=== PATIENT | male | born 1960 | race Native Hawaiian/Other Pacific Islander ===

== ENCOUNTER 2016-07-01 01:39 | Emergency (ER) | payer BC ==
[~2016-07-01] VITALS: Ht 172.7 cm; Wt 81.0 kg
[~2016-07-01 01:39] MED LIST: HYDR-3533 PO; PRAV10 PO
[2016-07-01 01:40] VITALS: BP 171/94; PULSE 69; RESP 16; TEMP 97.8; O2SAT 97
[2016-07-01] MEDS ORDERED: PRAV10TA PO (02:06)
[2016-07-01] MEDS ORDERED: MORPHINE SULFATE 4 MG/ML INJ IV PUSH ONE ×2 (02:15→03:45)
[2016-07-01] MEDS ORDERED: SODIUM CHLOR 0.9% 1000 ML INJ 1,000 ML IV ONE (02:15)
[2016-07-01] MEDS ORDERED: ONDANSETRON HCL 4 MG/2 ML VIAL IV ONE (02:15)
[2016-07-01 02:16] LABS: AUTOMATED NEUTROPHIL # 3.5 TH/MM3 (1.8-7.7); BASOPHIL % 0.6 % (0.0-2.0); EOSINOPHIL # 0.4 TH/MM3 (0-0.4); EOSINOPHIL % 5.1 % (0.0-4.0); HEMATOCRIT 42.7 % (39.0-51.0); HEMO FLAGS DIFF FINAL; LYMPH % 37.6 % (9.0-44.0); LYMPHOCYTE # 2.7 TH/MM3 (1.0-4.8); MEAN CELL VOLUME 85.4 FL (80.0-100.0); MEAN CORPUSCULAR HEMOGLOBIN 30.3 PG (27.0-34.0); MEAN CORPUSCULAR HGB CONC 35.5 % (32.0-36.0); MONO % 8.2 % (0.0-8.0); NEUT % 48.5 % (16.0-70.0); PLATELET COUNT 238 TH/MM3 (150-450); RED BLOOD COUNT 5.01 MIL/MM3 (4.50-5.90); RED CELL DISTRIBUTION WIDTH 12.9 % (11.6-17.2); WHITE BLOOD COUNT 7.2 TH/MM3 (4.0-11.0)
--- NOTE | 2016-07-01 02:35 | PD ---
HPI Chief Complaint: GI Complaint Time Seen by Provider: 01:52 Travel History International Travel<30 days: Yes Contact w/Intl Traveler<30days: Yes Name of Country Traveled to: [place] Traveled to known affect area: No History of Present Illness HPI The 56-year-old man who presents to the emergency department complaining of right upper quadrant abdominal pain. He had similar pain some time ago. Over the past week he's had intermittent pain, bad several days ago and then really bad again tonight. Pain tends to be worse at night. He's had associated nausea vomiting, and chills. No change in his bowel movements. No change in urination. Only previous abdominal history has been surgical history is been treatment of abdominal wall odonnell. He saw a GI doctor who put him test for him to get on his gallbladder next week. History Past Medical History Narrative Medical Hyperlipidemia Extensive odonnell in the past Tetanus Vaccination: < 5 Years Social History Alcohol Use: Yes (OCC) Tobacco Use: No Allergies-Medications (Allergen,Severity, Reaction): Coded Allergies: No Known Allergies (Unverified , 07/01/16) Reported Meds & Prescriptions Reported Meds & Active Scripts Active Reported Pravastatin 10 Mg Tab 10 Mg PO DAILY Review of Systems Except as stated in HPI: all other systems reviewed are Neg Physical Exam Narrative GENERAL: 56 year-old man, appears uncomfortable but nontoxic. SKIN: Warm and dry. Extensive scarring on the trunk and extremities from previous odonnell. HEAD: Atraumatic. Normocephalic. CARDIOVASCULAR: Regular rate and rhythm. No murmur appreciated. RESPIRATORY: No accessory muscle use. Clear to auscultation. Breath sounds equal bilaterally. GASTROINTESTINAL: Abdomen is flat and soft. Extensive skin scarring from previous odonnell. Focal tenderness in the right upper quadrant. Negative Nava' s. MUSCULOSKELETAL: No obvious deformities. No edema. NEUROLOGICAL: Awake and alert. No obvious cranial nerve deficits. Motor grossly within normal limits. Normal speech. PSYCHIATRIC: Appropriate mood and affect; insight and judgment normal. Data Data Last Documented VS Vital Signs Date Time Temp Pulse Resp B/P Pulse Ox O2 Delivery O2 Flow Rate FiO2 07/01/16 01:40 97.8 69 16 171/94 97 Room Air Orders Complete Blood Count With Diff (07/01/16 01:52) Comprehensive Metabolic Panel (07/01/16 01:52) Lipase (07/01/16 01:52) Iv Access Insert/Monitor (07/01/16 01:52) Sodium Chloride 0.9% Flush (Ns Flush) (07/01/16 02:00) Ed Poc Ultrasound (07/01/16 ) Morphine Inj (Morphine Inj) (07/01/16 02:15) Ondansetron Inj (Zofran Inj) (07/01/16 02:15) Sodium Chlor 0.9% 1000 Ml Inj (Ns 1000 M (07/01/16 02:15) Us Abdomen Gallbladder (07/01/16 ) Urinalysis - C+S If Indicated (07/01/16 02:31) Morphine Inj (Morphine Inj) (07/01/16 03:45) Ct Abd/Pel W Iv Contrast(Rout) (07/01/16 ) Iohexol 350 Inj (Omnipaque 350 Inj) (07/01/16 04:25) Labs Laboratory Tests Test 07/01/16 07/01/16 02:00 04:00 White Blood Count 7.2 TH/MM3 Red Blood Count 5.01 MIL/MM3 Hemoglobin 15.2 GM/DL Hematocrit 42.7 % Mean Corpuscular Volume 85.4 FL Mean Corpuscular Hemoglobin 30.3 PG Mean Corpuscular Hemoglobin 35.5 % Concent Red Cell Distribution Width 12.9 % Platelet Count 238 TH/MM3 Mean Platelet Volume 8.1 FL Neutrophils (%) (Auto) 48.5 % Lymphocytes (%) (Auto) 37.6 % Monocytes (%) (Auto) 8.2 % Eosinophils (%) (Auto) 5.1 % Basophils (%) (Auto) 0.6 % Neutrophils # (Auto) 3.5 TH/MM3 Lymphocytes # (Auto) 2.7 TH/MM3 Monocytes # (Auto) 0.6 TH/MM3 Eosinophils # (Auto) 0.4 TH/MM3 Basophils # (Auto) 0.0 TH/MM3 CBC Comment DIFF FINAL Differential Comment Sodium Level 141 MEQ/L Potassium Level 3.4 MEQ/L Chloride Level 106 MEQ/L Carbon Dioxide Level 28.4 MEQ/L Anion Gap 7 MEQ/L Blood Urea Nitrogen 13 MG/DL Creatinine 1.12 MG/DL Estimat Glomerular Filtration 68 ML/MIN Rate Random Glucose 119 MG/DL Calcium Level 9.6 MG/DL Total Bilirubin 0.9 MG/DL Aspartate Amino Transf 28 U/L (AST/SGOT) Alanine Aminotransferase 48 U/L (ALT/SGPT) Alkaline Phosphatase 98 U/L Total Protein 7.9 GM/DL Albumin 4.0 GM/DL Lipase 142 U/L Urine Color YELLOW Urine Turbidity CLEAR Urine pH 6.5 Urine Specific [place] 1.012 Urine Protein NEG mg/dL Urine Glucose (UA) 150 mg/dL Urine Ketones NEG mg/dL Urine Occult Blood NEG Urine Nitrite NEG Urine Bilirubin NEG Urine Urobilinogen LESS THAN 2.0 MG/DL Urine Leukocyte Esterase NEG Urine RBC LESS THAN 1 /hpf Urine WBC LESS THAN 1 /hpf Urine Hyaline Casts 1 /lpf Urine Mucus FEW /lpf Microscopic Urinalysis Comment CULT NOT INDICATED MDM Medical Decision Making Medical Screen Exam Complete: Yes Emergency Medical Condition: Yes Interpretation(s) LABS: CBC unremarkable. CMP unremarkable. Lipase normal. Coags unremarkable. Gallbladder ultrasound: Possible small for motor gallstone. No evidence of infection. Differential Diagnosis Gastritis, cholecystitis, pancreatitis, renal lithiasis, other Narrative Course Medical decision-making 56-year-old man who presents to the emergency department with severe right upper quadrant abdominal pain, suggestive of hepatobiliary disease. Bedside ultrasound doesn't show any obvious gallbladder pathology but was difficult to obtain proper images. We'll check labs, ultrasound, urine, reassess. FINAL: Workups unremarkable. Patient has significant epigastric discomfort. Most likely etiology of gastritis or peptic ulcer disease. We'll plan supportive treatment, antacids, follow-up with his GI physician. Procedures Procedure Narrative Point of care ultrasound: Focus transabdominal ultrasounds performed by me at the bedside to evaluate for cholecystitis. Very limited views. No obvious abnormality seen. Diagnosis Primary Impression: Gastritis Qualified Code: K29.00 - Acute gastritis without hemorrhage, unspecified gastritis type Additional Instructions: Take omeprazole as prescribed. Use Lortab if needed for pain. Follow-up with your GI doctor on Sunday as scheduled. Return to the emergency department for any new or worsening symptoms. Med/Other Pt SpecificInfo: Prescription(s) given Scripts Hydrocodone-Acetaminophen (Lortab)5-325 Mg Tab1-2 Tab PO Q6H PRN (PAIN) #12 TAB Prov:Olaf Cerda MD 07/01/16 Omeprazole 40 Mg Cap40 Mg PO DAILY #30 CAP Ref 0 Prov:Olaf Cerda MD 07/01/16 Disposition: 01 DISCHARGE HOME Condition: Stable Olaf Cerda MD Jul 01, 2016 02:35
[2016-07-01] MEDS: SODIUM CHLORIDE 0.9% FLUSH 5 ML FLUSH IVF PRN ×2 (02:42→03:44)
[2016-07-01 02:51] LABS: ANION GAP 7 MEQ/L (5-15); AST (GOT) 28 U/L (15-37); BICARBONATE 28.4 MEQ/L (21.0-32.0); BLOOD UREA NITROGEN 13 MG/DL (7-18); CHLORIDE 106 MEQ/L (98-107); GLOMERULAR FILTRATION RATE 68 ML/MIN (>89); POTASSIUM 3.4 MEQ/L (3.5-5.1); SODIUM (NA) 141 MEQ/L (136-145)
[2016-07-01 02:55] LABS: ALKALINE PHOSPHATASE 98 U/L (45-117); ALT (GPT) 48 U/L (12-78); TOTAL BILIRUBIN ADULT 0.9 MG/DL (0.2-1.0)
--- NOTE | 2016-07-01 03:31 | RADRPT ---
EXAM DATE/TIME: 07/01/2016 03:00 [facility] COMPARISON: No previous studies available for comparison. INDICATIONS : Right upper quadrant pain. MEDICAL HISTORY : Hyperlipidemia. Abdominal wall odonnell. SURGICAL HISTORY : Surgical treatment of abdominal wall odonnell. ENCOUNTER: Initial ACUITY: 1 week PAIN SCORE: 10/10 LOCATION: Right upper quadrant MEASUREMENTS: LIVER: 13.7 cm length COMMON DUCT: 6 mm RIGHT KIDNEY: 10.9 x 6.5 x 5.3 cm FINDINGS: LIVER: Increased echotexture without focal lesion or ductal dilatation. COMMON DUCT: No intraluminal mass or stone visualized. GALLBLADDER: Contains no stones, demonstrates no wall thickening or pericholecystic fluid. PANCREAS: The visualized portions are within normal limits. RIGHT KIDNEY: No evidence of hydronephrosis, stone, or mass. CONCLUSION: 1. Hepatic steatosis. 2. Questionable 4 mm gallstone. 3. No evidence for pericholecystic fluid, gallbladder wall thickening or sonographic Nava's sign. Heber Caballero MD on July 01, 2016 at 3:28 Board Certified Radiologist. This report was verified electronically.
[2016-07-01 04:25] LABS: BLOOD, URINE NEG (NEG); COMMENT (UR) CULT NOT INDICATED; CULTURE IF INDICATED CULT NOT INDICATED; GLUCOSE,URINE 150 mg/dL (NEG); HYALINE CAST, URINE 1 /lpf (RARE); KETONE, URINE NEG (NEG); MUCUS URINE FEW /lpf (OCC); NITRITE,URINE NEG (NEG); PH, URINE 6.5 (5.0-8.5); URINE COLOR YELLOW (YELLW/STRAW)
[2016-07-01] MEDS ORDERED: IOHEXOL 350 MG/ML 10 ML VIAL (for RAD DIAG) IV ONE (04:25)
--- NOTE | 2016-07-01 04:41 | RADRPT ---
EXAM DATE/TIME: 07/01/2016 04:26 [facility] COMPARISON: US ABDOMEN - GALLBLADDER, July 01, 2016, 3:00. INDICATIONS : Abdominal pain, nausea, and vomiting. IV CONTRAST: 96 cc Omnipaque 350 (iohexol) IV ORAL CONTRAST: No oral contrast ingested. RADIATION DOSE: 7.31 CTDIvol (mGy) MEDICAL HISTORY : Hypercholesterolemia. SURGICAL HISTORY : None. ENCOUNTER: Initial ACUITY: 1 day PAIN SCALE: 6/10 LOCATION: abdomen TECHNIQUE: Volumetric scanning of the abdomen and pelvis was performed. Using automated exposure control and ad justment of the mA and/or kV according to patient size, radiation dose was kept as low as reasonably achievable to obtain optimal diagnostic quality images. FINDINGS: Mild hepatic steatosis. Spleen, pancreas, gallbladder, adrenal glands, right kidney unremarkable. Tin y cyst left midpole kidney. No aneurysm or adenopathy. Urinary bladder, prostate unremarkable. No aleksander dence of bowel obstruction. The stomach is unremarkable. The appendix is normal. Lung bases are clear . There are degenerative changes of the spine noted. CONCLUSION: 1. Mild hepatic steatosis. 2. Tiny left renal cyst. Heber Caballero MD on July 01, 2016 at 4:38 Board Certified Radiologist. This report was verified electronically.
[2016-07-01] MEDS ORDERED: HYDR-3533 PO (04:56)
[2016-07-01] MEDS ORDERED: OMEP40CA2 PO (04:56)
[2016-07-01 05:19] VITALS: BP 113/72
== END 2016-07-01 05:23 | disposition home or self-care (01) ==
LOC: NEPE 01:39
DX: K29.00 Acute gastritis without bleeding (principal); E78.5 Hyperlipidemia, unspecified
CPT/HCPCS: 74177; 76705; 80053; 81001; 83690; 85025; 96361; 96374; 96375; 96376; 99284; J2270; J2405; J7030; Q9967

== ENCOUNTER 2016-09-18 20:21 | Emergency (ER) | payer BC ==
[~2016-09-18 20:21] MED LIST changes: +OMEP40CA2 PO; -PRAV10 PO; +PRAV10TA PO
[2016-09-18 20:23] VITALS: BP 125/80; PULSE 66; RESP 16; TEMP 98.1; O2SAT 98
== END 2016-09-18 21:29 | disposition left against medical advice (07) ==
LOC: NED 20:21
DX: Z53.21 Procedure and treatment not carried out due to patient leaving prior to being seen by health care provider (principal)
CPT/HCPCS: 99281